=== PATIENT | male | born 1960 | race Caucasian/White ===

== ENCOUNTER 2019-04-14 08:27 | Outpatient (CLI) | payer OTHER ==
[~2019-04-14 08:27] MED LIST: NORVASC5 MG
== END 2019-04-14 14:38 | disposition home or self-care (01) ==
LOC: RAD 08:27
DX: R13.19 Other dysphagia (principal); D17.22 Benign lipomatous neoplasm of skin and subcutaneous tissue of left arm

== ENCOUNTER 2019-08-09 08:57 | Outpatient (CLI) | payer OTHER | END 2019-08-09 09:01 | disposition home or self-care (01) | LOC: SONOGRAMA 08:57 → MAMO-SONO 09:15 | DX: R10.11 Right upper quadrant pain (principal) ==

== ENCOUNTER 2022-08-07 14:04 | Outpatient (CLI) | payer OTHER ==
[2022-08-07] MEDS ORDERED: ENTRESTO 49 MG1 EACH PO (15:25)
[2022-08-07] MEDS ORDERED: LEVOTHYROXINE25 MC1 PO (15:25)
[2022-08-07] MEDS ORDERED: JARDIANCE10 MG PO (15:25)
[2022-08-07] MEDS ORDERED: ATORVASTATIN CA40 MG PO (15:25)
[2022-08-07] MEDS ORDERED: METOPROLOL SUC100 MG PO (15:25)
[2022-08-07] MEDS ORDERED: FENOFIBRATE145 MG PO (15:26)
== END 2022-08-07 14:07 | disposition home or self-care (01) ==
LOC: RAD 14:04
PROVIDERS: ATTEND Obstetrics & Gynecology Gynecology
DX: R07.9 Chest pain, unspecified (principal)

== ENCOUNTER 2022-08-07 15:18 | Inpatient (IN) | payer OTHER ==
[~2022-08-07] VITALS: Ht 172.7 cm; Wt 97.5 kg
[2022-08-07] MEDS ORDERED: JARDIANCE10 MG PO (15:25)
[2022-08-07] MEDS ORDERED: ATORVASTATIN CA40 MG PO (15:25)
[2022-08-07] MEDS ORDERED: METOPROLOL SUC100 MG PO (15:25)
[2022-08-07] MEDS ORDERED: ENTRESTO 49 MG1 EACH PO (15:25)
[2022-08-07] MEDS ORDERED: LEVOTHYROXINE25 MC1 PO (15:25)
[2022-08-07] MEDS ORDERED: FENOFIBRATE145 MG PO (15:26)
--- NOTE | 2022-08-07 15:34 | NUR ---
PACIENTE ALERTA Y ORIENTADO X3, REFIERE TENER DOLOR DE PECHO QUE EMPEORA AL CAMINAR, REFIERE SENTIR EXTREMIDADES SUPERIORES ADORMECIDAS. SE MONITOREAN VS, SE REALIZA EKG, Y SE UBICA EN PASILLO
--- NOTE | 2022-08-07 16:26 | NUR ---
SE EDUCA A PTE SOBRE TX MEDICO CONCHA REFIERE ENTENDER. SE CRISTOBAL MUESTRAS DE LABORATORIO UTILIZANDO MEDIDAS ASEPTICAS. SE NOTIFICA RX PENDIENTE.
[2022-08-10] MEDS ORDERED: JANUVIA100 MG (09:11)
[2022-08-10] MEDS ORDERED: SPIRONOLACTONE25 MG (09:12)
[2022-08-10] MEDS ORDERED: ST. JOSEPH ASPI81 M2 (09:12)
[2022-08-10] MEDS ORDERED: METFORMIN HCL500 M4 (09:12)
== END 2022-08-21 12:28 | disposition home or self-care (01) | DRG 282 ==
LOC: ER 15:18 → ICU-2 20:51 → MEDJ 08-09 17:36
PROVIDERS: ADMIT Internal Medicine; ATTEND Internal Medicine
PROC: B246ZZZ Ultrasonography of Right and Left Heart (ICD-10-PCS; principal; 2022-08-07)
PROC: 4A12X4Z Monitoring of Cardiac Electrical Activity, External Approach (ICD-10-PCS; 2022-08-10)
DX: I21.4 Non-ST elevation (NSTEMI) myocardial infarction (principal); E11.69 Type 2 diabetes mellitus with other specified complication; I11.0 Hypertensive heart disease with heart failure; I50.9 Heart failure, unspecified; E03.8 Other specified hypothyroidism; I24.8 Other forms of acute ischemic heart disease; E78.49 Other hyperlipidemia; Z79.4 Long term (current) use of insulin; E66.9 Obesity, unspecified; Z68.32 Body mass index [BMI] 32.0-32.9, adult

== ENCOUNTER 2024-01-31 13:34 | Outpatient (CLI) | payer OTHER ==
[~2024-01-31 13:34] MED LIST changes: +ATORVASTATIN CA40 MG PO; +ENTRESTO 49 MG1 EACH PO; +FENOFIBRATE145 MG PO; +JANUVIA100 MG; +JARDIANCE10 MG PO; +LEVOTHYROXINE25 MC1 PO; +METFORMIN HCL500 M4; +METOPROLOL SUC100 MG PO; +SPIRONOLACTONE25 MG; +ST. JOSEPH ASPI81 M2
== END 2024-01-31 13:35 | disposition home or self-care (01) ==
LOC: MRI 13:34
DX: M25.462 Effusion, left knee (principal)
CPT/HCPCS: 73721